=== PATIENT | male | born 1990 | race Caucasian/White ===

== ENCOUNTER 2020-03-22 10:09 | Inpatient (IN) | payer OTHER ==
--- NOTE | 2020-03-22 10:30 | BHS.RME ---
Substance Use & Tx History - Substance Use History Alcohol Substance amount: 3/4 to one liter Vodka Frequency of use: Daily Substance route: Oral Date of Last Use: 03/22/20 - Last Treatment Date of last treatment: January 242019 Treatment type: Substance Use Disorder ([facility]SHINE) Where was last treatment: Detox Physical/Psych/Mental Status - Behavior General Behavior: Increased activity (restlessness, agitation) Eye Contact: Normal - Cooperativeness Cooperativeness: Cooperative - Thinking Thought Processes: Tight Thought content: Suicidal ideation - Physical Health Problems Is patient presently having any pain?: No Does patient presently have any injuries (include location): No Does patient currently have a fever: No CIWA Nausea/Vomitin-No Nausea/No Vomiting Muscle Tremors: 3 Anxiety: 4-Mod. Anxious/Guarded Agitation: 0-Normal Activity Paroxysmal Sweats: No Perspiration Orientation: 1-Uncertain about Date Tacttile Disturbances: 1-Very Mild Itch/Numbness Auditory Disturbances: 2-Mild Harshness/Frighten Visual Disturbances: 2-Mild Sensitivity Headache: 0-None Present CIWA-Ar Total Score: 13 Treatment Recommendation - Level of Care Level of Care: Acute Psychiatric (will place pt on 1:1 for suicidal ideation and call Psychiatry for evaluation)
--- NOTE | 2020-03-22 10:43 | PN ---
[facility] Progress Note Note: Pt. voiced suicidal ideation when querried. Stated he would "put a gun in my mouth". States he has a gun at home but, "would never do that". Placed on 1:1 with nurse Carri Irvin, called Driss Gallego for psychiatric evaluation.
[2020-03-22 10:49] VITALS: BMI 21.9
--- NOTE | 2020-03-22 11:48 | HP ---
CIWA Score Nausea/Vomitin-No Nausea/No Vomiting Muscle Tremors: 3 Anxiety: 4-Mod. Anxious/Guarded Agitation: 0-Normal Activity Paroxysmal Sweats: No Perspiration Orientation: 1-Uncertain about Date Tacttile Disturbances: 1-Very Mild Itch/Numbness Auditory Disturbances: 2-Mild Harshness/Frighten Visual Disturbances: 2-Mild Sensitivity Headache: 0-None Present CIWA-Ar Total Score: 13 - Admission Criteria OASAS Guidelines: Admission for Medically Managed Detox: Requires at least one of the followin. CIWA greater than 12 2. Seizures within the past 24 hours 3. Delirium tremens within the past 24 hours 4. Hallucinations within the past 24 hours 5. Acute intervention needed for co occurring medical disorder 6. Acute intervention needed for co occurring psychiatric disorder 7. Severe withdrawal that cannot be handled at a lower level of care (continued vomiting, continued diarrhea, abnormal vital signs) requiring intravenous medication and/or fluids 8. Admitting History and Physical - Admission History of Present Illness: Mr. Beyer is a 29 yo man who presents to detox stating "I need help, I don't want to do this anymore". Hwas last here in January and relapsed within days of leaving. PMH: no PSH: right inguinal hernia, left toe bunion Psych: depression, no tx, (+) SI (psychiatry called) SoC: lives with parents Legal: none Substance Use History Alcohol Substance amount: 3/4 to one liter Vodka Frequency of use: Daily Substance route: Oral Date of Last Use: 03/22/20 - Last Treatment Date of last treatment: January 24 to 2019 Treatment type: Substance Use Disorder ([facility]SHINE) Where was last treatment: Detox History Source: Patient Limitations to Obtaining History: No Limitations - Past Medical History Pulmonary: Yes: Asthma Gastrointestinal: Yes: GERD Psych: Yes: Depression - Past Surgical History Past Surgical History: Yes: None - Smoking History Smoking history: Current every day smoker Have you smoked in the past 12 months: Yes Aproximately how many cigarettes per day: 15 - Alcohol/Substance Use Hx Alcohol Use: Yes - Social History ADL: Family Assistance History of Recent Travel: No Admission ROS BHS - HPI Allergies/Adverse Reactions: Allergies Allergy/AdvReac Type Severity Reaction Status Date / Time No Known Allergies Allergy Verified 03/22/20 10:42 Exam Limitations: No Limitations - Ebola screening Have you traveled outside of the country in the last 21 days: No Have you been sick,other than usual withdrawal symptoms: No Do you have a fever: No - Review of Systems Constitutional: Changes in sleep (some days sleeps more, some less) EENT: reports: Blurred Vision (glasses for near and distant, has glasses with him today) Respiratory: reports: No Symptoms reported Cardiac: reports: No Symptoms Reported GI: reports: Constipated, Nausea : reports: No Symptoms Reported Musculoskeletal: reports: No Symptoms Reported Integumentary: reports: No Symptoms Reported Neuro: reports: No Symptoms reported Endocrine: reports: No Symptoms Reported Hematology: reports: No Symptoms Reported Psychiatric: reports: Anxious, Depressed Patient History - Patient Medical History Hx Anemia: No Hx Asthma: No Hx Chronic Obstructive Pulmonary Disease (COPD): No Hx Cancer: No Hx Cardiac Disorders: No Hx Congestive Heart Failure: No Hx Hypertension: No Hx Hypercholesterolemia: No Hx Pacemaker: No HX Cerebrovascular Accident: No Hx Seizures: No Hx Dementia: No Hx Diabetes: No Hx Gastrointestinal Disorders: No Hx Liver Disease: No Hx Genitourinary Disorders: No Hx Sexually Transmitted Disorders: No Hx Renal Disease (ESRD): No Hx Thyroid Disease: No Hx Human Immunodeficiency Virus (HIV): No Hx Hepatitis C: No Hx Depression: Yes Hx Suicide Attempt: No Hx Bipolar Disorder: No Hx Schizophrenia: No - Patient Surgical History Past Surgical History: Yes Hx Neurologic Surgery: No Hx Cataract Extraction: No Hx Cardiac Surgery: No Hx Lung Surgery: No Hx Breast Surgery: No Hx Breast Biopsy: No Hx Abdominal Surgery: Yes (left testicular hernia repair 2006/bunion repair 07/17) Hx Appendectomy: No Hx Cholecystectomy: No Hx Genitourinary Surgery: No Hx Section: No Hx Orthopedic Surgery: No Anesthesia Reaction: No - PPD History Previous Implant?: Yes Documented Results: Negative w/proof Implanted On Prior R Admission?: Yes Date: 01/27/20 - Reproductive History Patient : (n/a) - Smoking Cessation Smoking history: Current every day smoker Have you smoked in the past 12 months: Yes Aproximately how many cigarettes per day: 15 Hx Chewing Tobacco Use: No Initiated information on smoking cessation: Yes 'Breaking Loose' booklet given: 03/22/20 - Substances abused Alcohol Substance route: Oral Frequency: Daily Amount used: 3/4 liter of vodka Age of first use: 19 Date of last use: 03/22/20 Admission Physical Exam [facility] - Vital Signs Vital Signs: Vital Signs - 24 hr 03/22/20 10:42 Temperature 98.3 F Pulse Rate 107 H Respiratory 19 Rate Blood Pressure 154/103 H - Physical General Appearance: Yes: Nourished, Appropriately Dressed, Mild Distress, Anxious HEENTM: Yes: EOMI, Hearing grossly Normal, Normocephalic, Normal Voice Respiratory: Yes: Lungs Clear, Normal Breath Sounds, No Respiratory Distress, No Accessory Muscle Use Neck: Yes: Within Normal Limits, Supple Breast: Yes: Breast Exam Deferred Cardiology: Yes: Regular Rhythm, Regular Rate, S1, S2 Abdominal: Yes: Normal Bowel Sounds, Non Tender, Flat, Soft Genitourinary: Yes: Other (deferred) Back: Yes: Normal Inspection Musculoskeletal: Yes: Gait Steady Extremities: Yes: Normal Inspection, Non-Tender Neurological: Yes: Alert Integumentary: Yes: Normal Color, Dry, Warm, Other (scattered bruises on both legs, he attributes to bed with bars) - Diagnostic (1) Alcohol dependence with withdrawal, uncomplicated Current Visit: Yes Status: Acute (2) Depression Current Visit: Yes Status: Acute Comment: seen by PRATIBHA Gallego in [facility] for suicidal thoughts (3) Nicotine dependence Current Visit: Yes Status: Acute Qualifiers: Nicotine product type: cigarettes Substance use status: uncomplicated Qualified Code(s): F17.210 - Nicotine dependence, cigarettes, uncomplicated Cleared for Admission [facility] - Detox or Rehab [facility] Level of Care: Medically Managed Detox Regimen/Protocol: Ativan Breathalyzer - Breathalyzer Breathalyzer: 0.211 Urine Drug Screen - Test Device Lot number: [id number] Expiration date: 03/13/22 - Control Is test valid?: Yes - Results Drug screen NEGATIVE: Yes Inpatient Rehab Admission - Rehab Decision to Admit Inpatient rehab admission?: No
[2020-03-22] MEDS ORDERED: NICOTINE POLACRILEX 2 MG GUM BUC PRN (11:49)
[2020-03-22] MEDS ORDERED: ACETAMINOPHEN 325 MG TABLET (FP) PO PRN ×2 (11:49)
[2020-03-22] MEDS ORDERED: LORazepam 1 MG TABLET PO PRN (11:49)
[2020-03-22] MEDS ORDERED: MAGNESIUM CITRATE 300 ML BOTTLE PO PRN (11:49)
[2020-03-22] MEDS ORDERED: BISMUTH SUBSALICYLATE 262 MG/15 ML BTL PO PRN (11:49)
[2020-03-22] MEDS ORDERED: ONDANSETRON *ODT* 4 MG TABLET SL PRN (11:49)
[2020-03-22] MEDS ORDERED: MAG HYDROX/AL HYDROX/SIMETH 30 ML UNIT-DOSE CUP PO PRN (11:49)
[2020-03-22] MEDS ORDERED: IBUPROFEN 400 MG TABLET (FP) PO PRN (11:49)
[2020-03-22] MEDS ORDERED: MENTHOL/PHENOL 1 EACH UD MM PRN (11:49)
[2020-03-22] MEDS ORDERED: MAGNESIUM HYDROX 2400MG/30ML ORAL SUSPENSION 30 ML CUP PO PRN (11:49)
[2020-03-22] MEDS: NICOTINE 14 MG/24 HOURS TOPICAL PATCH TD SCH (12:35)
--- NOTE | 2020-03-22 12:36 | CONSULT ---
[facility] Psychiatric Consult - Data Date of interview: 03/22/20 Admission source: [facility] Identifying data: Patient is a 29 year old single male, without children, unemployed ( previously worked as a cabin residential door installer), and resides with family. This is one of multiple admissions for patient. Patient admitted to for alcohol dependence. Substance Abuse History: Smoking Cessation. Smoking history: Current every day smoker. Have you smoked in the past 12 months: Yes. Aproximately how many cigarettes per day: 15. Hx Chewing Tobacco Use: No. Initiated information on smoking cessation: Yes. 'Breaking Loose' booklet given: 03/22/20. - Substances abused. Alcohol. Substance route: Oral. Frequency: Daily. Amount used: 3/4 liter of vodka. Age of first use: 19. Date of last use: 03/22/20 Medical History: Significant for GERD and history of childhood asthma. Psychiatric History: Patient seen in the [facility] after reports of suicidal ideation of stating " I would put a gun in my mouth." Mr. Beyer denies history of psychiatric hospitalizations, outpatient psychiatric care, and suicide attempt. Patient presented as calm, cooperative, alert + oriented X3 but depressed. Patient reports feeling " really low" today due to his chronic use of alcohol which has caused him to have thoughts of not wanting to live but states that he would never act on hurting himself. Patient reports having a gun at home but states that he does not touch it when when he drinks alcohol. He did report having thoughts of " putting the gun in my mouth." States that he would never hurt himself and only has negative thoughts when he drinks alcohol. Mr. Beyer is able to mention his mother, father, sister, and twin brother as his protective factor. He reports motivation of wanting to live and his motivation to stop drinking. He recalls a year of sobriery in 2016 in which he reported feeling great. Mr. Beyer stated that his plan is to complete detox and attend inpatient rehab at [facility]. No reported family history of suicide attempt. Patient denies current thoughts to hurt self others. Physical/Sexual Abuse/Trauma History: denies. Mental Status Exam - Mental Status Exam Alert and Oriented to: Time, Place, Person Cognitive Function: Good Patient Appearance: Well Groomed Mood: Sad Affect: Mood Congruent Patient Behavior: Appropriate, Cooperative Speech Pattern: Appropriate Voice Loudness: Normal Thought Process: Goal Oriented Thought Disorder: Not Present Hallucinations: Denies Suicidal Ideation: Denies Homicidal Ideation: Denies Insight/Judgement: Poor Sleep: Poorly Appetite: Fair Muscle strength/Tone: Normal Gait/Station: Normal Psychiatric Findings - Problem List ([place]oom[place] 1, 2,3) (1) Alcohol dependence with withdrawal, uncomplicated Status: Acute (2) Alcohol-induced mood disorder Status: Acute (3) Alcohol-induced sleep disorder Status: Acute - Initial Treatment Plan Initial Treatment Plan: Psychoeducation provided. Detoxification in progress. Will order gabapentin 200mg TID for anxiety+ Belsomra 10mg HS PRN. Benefits and side effects discussed. Verbal consent given.
[2020-03-22] MEDS: hydrOXYzine PAMOATE 25 MG CAPSULE (FP) PO SCH ×3 (13:36→22:55)
[2020-03-22 16:51] LABS: HEMATOCRIT 46.6 % (35.4-49); HEMOGLOBIN 15.7 GM/dL (11.7-16.9); MCH 31.1 pg (25.7-33.7); MCHC 33.8 g/dl (32.0-35.9); MEAN CELL VOLUME 92.2 fl (80-96); MEAN PLT VOLUME 9.3 fl (7.5-11.1); PLATELET COUNT 107 K/MM3 (134-434); RBC 5.05 M/mm3 (4.00-5.60); RDW 15.4 % (11.9-15.9); WHITE BLOOD COUNT 5.1 K/mm3 (4.0-10.0)
[2020-03-22 16:57] LABS: BILIRUBIN,TOTAL 1.9 mg/dL (0.2-1); BLOOD UREA NITROGEN 14.7 mg/dL (7-18); POTASSIUM 4.1 mmol/L (3.5-5.1)
[2020-03-22] MEDS: LORazepam 2 MG TABLET PO SCH ×2 (17:56→22:54)
[2020-03-22] MEDS: GABAPENTIN 100 MG CAPSULE PO SCH (22:54)
[2020-03-22] MEDS: THIAMINE HCL 100 MG TABLET (FP) PO SCH (22:55)
[2020-03-22] MEDS: MELATONIN 5 MG TABLETS PO SCH (22:56)
[2020-03-23] MEDS: LORazepam 2 MG TABLET PO SCH ×4 (05:39→23:07)
[2020-03-23] MEDS: GABAPENTIN 100 MG CAPSULE PO SCH ×3 (05:40→22:40)
[2020-03-23] MEDS: hydrOXYzine PAMOATE 25 MG CAPSULE (FP) PO SCH ×5 (05:40→22:40)
[2020-03-23] MEDS: PRENATAL VITAMINS W/ FOLIC ACID TABLET (FP) PO SCH (10:14)
[2020-03-23] MEDS: NICOTINE 14 MG/24 HOURS TOPICAL PATCH TD SCH (10:14)
--- NOTE | 2020-03-23 10:34 | PN ---
S CIWA - CIWA Score Nausea/Vomitin Muscle Tremors: 2 Anxiety: 2 Agitation: 2 Paroxysmal Sweats: 1-Minimal Palms Moist Orientation: 0-Oriented Tacttile Disturbances: 1-Very Mild Itch/Numbness Auditory Disturbances: 0-None Visual Disturbances: 0-None Headache: 2-Mild CIWA-Ar Total Score: 12 BHS Progress Note (SOAP) Subjective: alert,irritable,anxious,interrupted sleep,tremor,pain in the body,nausea Objective: 03/23/20 17:25 Vital Signs Temperature 98.1 F 03/23/20 12:42 Pulse Rate 110 H 03/23/20 12:42 Respiratory Rate 18 03/23/20 12:42 Blood Pressure 140/89 03/23/20 12:42 O2 Sat by Pulse Oximetry (%) 99 03/23/20 12:42 Laboratory Last Values WBC 5.1 K/mm3 (4.0-10.0) 03/22/20 12:05 RBC 5.05 M/mm3 (4.00-5.60) 03/22/20 12:05 Hgb 15.7 GM/dL (11.7-16.9) 03/22/20 12:05 Hct 46.6 % (35.4-49) 03/22/20 12:05 MCV 92.2 fl (80-96) 03/22/20 12:05 MCH 31.1 pg (25.7-33.7) 03/22/20 12:05 MCHC 33.8 g/dl (32.0-35.9) 03/22/20 12:05 RDW 15.4 % (11.9-15.9) 03/22/20 12:05 Plt Count 107 K/MM3 (134-434) L D 03/22/20 12:05 MPV 9.3 fl (7.5-11.1) D 03/22/20 12:05 Sodium 140 mmol/L (136-145) 03/22/20 12:05 Potassium 4.1 mmol/L (3.5-5.1) 03/22/20 12:05 Chloride 100 mmol/L (98-107) 03/22/20 12:05 Carbon Dioxide 29 mmol/L (21-32) 03/22/20 12:05 Anion Gap 10 MMOL/L (8-16) 03/22/20 12:05 BUN 14.7 mg/dL (7-18) 03/22/20 12:05 Creatinine 1.0 mg/dL (0.55-1.3) 03/22/20 12:05 Est GFR (CKD-EPI)AfAm 118.19 03/22/20 12:05 Est GFR (CKD-EPI)NonAf 101.97 03/22/20 12:05 Random Glucose 130 mg/dL (74-106) H 03/22/20 12:05 Calcium 9.0 mg/dL (8.5-10.1) 03/22/20 12:05 Total Bilirubin 1.9 mg/dL (0.2-1) H 03/22/20 12:05 AST 298 U/L (15-37) H 03/22/20 12:05 ALT 190 U/L (13-61) H 03/22/20 12:05 Alkaline Phosphatase 105 U/L (45-117) 03/22/20 12:05 Total Protein 9.0 g/dl (6.4-8.2) H 03/22/20 12:05 Albumin 5.0 g/dl (3.4-5.0) 03/22/20 12:05 Syphilis Serology Non-reactive (NONREACTIVE) 03/22/20 12:05 COVID-19 (ELIU) Not detected (Not Detected) 03/22/20 12:45 Assessment: 03/23/20 17:25 withdrawal symptom Plan: continue detox ativan regimen,repeat hepatic function panel,inr in am,fasting glucose in am
[2020-03-23] MEDS ORDERED: cloNIDine HCL 0.1 MG TABLET PO ONE (20:21)
[2020-03-23] MEDS: THIAMINE HCL 100 MG TABLET (FP) PO SCH (22:40)
[2020-03-23] MEDS: SUVOREXANT 10 MG TABLET PO PRN (22:43)
[2020-03-23] MEDS: MELATONIN 5 MG TABLETS PO SCH (23:07)
[2020-03-24] MEDS: LORazepam 1 MG TABLET PO SCH ×4 (06:17→22:29)
[2020-03-24] MEDS: GABAPENTIN 100 MG CAPSULE PO SCH ×3 (06:18→22:29)
[2020-03-24] MEDS: hydrOXYzine PAMOATE 25 MG CAPSULE (FP) PO SCH ×5 (06:18→22:29)
[2020-03-24] MEDS: NICOTINE 14 MG/24 HOURS TOPICAL PATCH TD SCH (10:24)
[2020-03-24] MEDS: PRENATAL VITAMINS W/ FOLIC ACID TABLET (FP) PO SCH (10:24)
--- NOTE | 2020-03-24 11:53 | PN ---
S CIWA - CIWA Score Nausea/Vomitin-No Nausea/No Vomiting Muscle Tremors: None Anxiety: 3 Agitation: 1-Slight > Activity Paroxysmal Sweats: 3 Orientation: 0-Oriented Tacttile Disturbances: 0-None Auditory Disturbances: 0-None Visual Disturbances: 0-None Headache: 2-Mild CIWA-Ar Total Score: 9 BHS Progress Note (SOAP) Subjective: c/o anxiety, headache, and sweats. Objective: 03/24/20 11:49 Vital Signs 03/24/20 03/24/20 06:00 08:34 Temperature 97.5 F L 97.1 F L Pulse Rate 76 100 H Respiratory 18 18 Rate Blood Pressure 117/73 133/83 O2 Sat by Pulse 97 Oximetry (%) Laboratory Last Values WBC 5.1 K/mm3 (4.0-10.0) 03/22/20 12:05 RBC 5.05 M/mm3 (4.00-5.60) 03/22/20 12:05 Hgb 15.7 GM/dL (11.7-16.9) 03/22/20 12:05 Hct 46.6 % (35.4-49) 03/22/20 12:05 MCV 92.2 fl (80-96) 03/22/20 12:05 MCH 31.1 pg (25.7-33.7) 03/22/20 12:05 MCHC 33.8 g/dl (32.0-35.9) 03/22/20 12:05 RDW 15.4 % (11.9-15.9) 03/22/20 12:05 Plt Count 107 K/MM3 (134-434) L D 03/22/20 12:05 MPV 9.3 fl (7.5-11.1) D 03/22/20 12:05 Sodium 140 mmol/L (136-145) 03/22/20 12:05 Potassium 4.1 mmol/L (3.5-5.1) 03/22/20 12:05 Chloride 100 mmol/L (98-107) 03/22/20 12:05 Carbon Dioxide 29 mmol/L (21-32) 03/22/20 12:05 Anion Gap 10 MMOL/L (8-16) 03/22/20 12:05 BUN 14.7 mg/dL (7-18) 03/22/20 12:05 Creatinine 1.0 mg/dL (0.55-1.3) 03/22/20 12:05 Est GFR (CKD-EPI)AfAm 118.19 03/22/20 12:05 Est GFR (CKD-EPI)NonAf 101.97 03/22/20 12:05 Random Glucose 130 mg/dL (74-106) H 03/22/20 12:05 Calcium 9.0 mg/dL (8.5-10.1) 03/22/20 12:05 Total Bilirubin 1.9 mg/dL (0.2-1) H 03/22/20 12:05 AST 298 U/L (15-37) H 03/22/20 12:05 ALT 190 U/L (13-61) H 03/22/20 12:05 Alkaline Phosphatase 105 U/L (45-117) 03/22/20 12:05 Total Protein 9.0 g/dl (6.4-8.2) H 03/22/20 12:05 Albumin 5.0 g/dl (3.4-5.0) 03/22/20 12:05 Syphilis Serology Non-reactive (NONREACTIVE) 03/22/20 12:05 COVID-19 (ELIU) Not detected (Not Detected) 03/22/20 12:45 Labs noted with elevated AST/ALT. 03/24/20 11:52 Assessment: 03/24/20 11:52 AOX3 and in no acute respiratory distress. Full ROM, ambulating in the unit. Withdrawal symptoms. Elevated liver enzymes. Plan: continue detox.
[2020-03-24] MEDS: METHOCARBAMOL 500 MG TABLET PO PRN (18:25)
[2020-03-24] MEDS: SUVOREXANT 10 MG TABLET PO PRN (22:28)
[2020-03-24] MEDS: MELATONIN 5 MG TABLETS PO SCH (22:29)
[2020-03-24] MEDS: THIAMINE HCL 100 MG TABLET (FP) PO SCH (22:29)
[2020-03-25] MEDS ORDERED: LORazepam 0.5 MG TABLET PO PRN
[2020-03-25] MEDS: GABAPENTIN 100 MG CAPSULE PO SCH ×3 (06:20→22:19)
[2020-03-25] MEDS: LORazepam 0.5 MG TABLET PO SCH ×4 (06:20→22:19)
[2020-03-25] MEDS: hydrOXYzine PAMOATE 25 MG CAPSULE (FP) PO SCH ×5 (06:21→22:19)
--- NOTE | 2020-03-25 10:26 | PN ---
S CIWA - CIWA Score Nausea/Vomitin-No Nausea/No Vomiting Muscle Tremors: 2 Anxiety: 1-Mildly Anxious Agitation: 0-Normal Activity Paroxysmal Sweats: No Perspiration Orientation: 0-Oriented Tacttile Disturbances: 0-None Auditory Disturbances: 0-None Visual Disturbances: 1-Very Mild Sensitivity Headache: 1-Very Mild CIWA-Ar Total Score: 5 BHS Progress Note (SOAP) Subjective: 29 years old male admitted on 03/22/20 for alcohol withdrawal sx management treating with ativan detox regiment feeling better today sitting on the edge of the bed eating breakfast less tremor mild anxiety denies suicidal ideation no homocidal no self destructive behavioral noted discussing aftercare with staff mr silva prefers [facility] in patient rehab for alcohol recovery Objective: 03/25/20 10:29 Vital Signs - 24 hr 03/24/20 03/24/20 03/24/20 12:32 16:55 20:40 Temperature 98.5 F 97.5 F L 98.4 F Pulse Rate 94 H 83 98 H Respiratory 18 18 19 Rate Blood Pressure 135/91 134/88 136/87 O2 Sat by Pulse 100 98 Oximetry (%) 03/25/20 03/25/20 07:25 08:45 Temperature 97.5 F L 97.1 F L Pulse Rate 62 65 Respiratory 18 18 Rate Blood Pressure 113/75 123/89 O2 Sat by Pulse 99 Oximetry (%) Laboratory Tests 03/22/20 03/22/20 03/22/20 12:05 12:05 12:05 WBC 5.1 RBC 5.05 Hgb 15.7 Hct 46.6 MCV 92.2 MCH 31.1 MCHC 33.8 RDW 15.4 Plt Count 107 L D MPV 9.3 D Sodium 140 Potassium 4.1 Chloride 100 Carbon Dioxide 29 Anion Gap 10 BUN 14.7 Creatinine 1.0 Est GFR (CKD-EPI)AfAm 118.19 Est GFR (CKD-EPI)NonAf 101.97 Random Glucose 130 H Fasting Glucose Calcium 9.0 Total Bilirubin 1.9 H AST 298 H ALT 190 H Alkaline Phosphatase 105 Total Protein 9.0 H Albumin 5.0 Syphilis Serology Non-reactive COVID-19 (ELIU) 03/22/20 03/25/20 12:45 08:00 WBC RBC Hgb Hct MCV MCH MCHC RDW Plt Count MPV Sodium Potassium Chloride Carbon Dioxide Anion Gap BUN Creatinine Est GFR (CKD-EPI)AfAm Est GFR (CKD-EPI)NonAf Random Glucose Fasting Glucose Cancelled Calcium Total Bilirubin AST ALT Alkaline Phosphatase Total Protein Albumin Syphilis Serology COVID-19 (ELIU) Not detected glucose elevation ast elevation 03/25/20 10:30 low plt fasting glucose pending camp pending inr pending Assessment: 03/25/20 10:30 alcohol withdrawal Plan: ativan regiment
[2020-03-25 10:44] LABS: INR 0.98 (0.83-1.09); PROTHROMBIN TIME (PATIENT) 11.6 SEC (9.7-13.0)
[2020-03-25] MEDS: NICOTINE 14 MG/24 HOURS TOPICAL PATCH TD SCH (10:46)
[2020-03-25] MEDS: METHOCARBAMOL 500 MG TABLET PO PRN ×2 (10:46→17:59)
[2020-03-25] MEDS: PRENATAL VITAMINS W/ FOLIC ACID TABLET (FP) PO SCH (10:46)
[2020-03-25 10:51] LABS: POTASSIUM 4.1 mmol/L (3.5-5.1)
[2020-03-25 10:57] LABS: ALBUMIN 4.1 g/dl (3.4-5.0); BILIRUBIN,DIRECT 0.5 mg/dL (0.0-0.2); CALCIUM 9.1 mg/dL (8.5-10.1); CREATININE 0.9 mg/dL (0.55-1.3); TOT PROT 7.3 g/dl (6.4-8.2)
[2020-03-25 11:33] LABS: BILIRUBIN,TOTAL 2.4 mg/dL (0.2-1)
[2020-03-25] MEDS ORDERED: SUVOREXANT 10 MG TABLET PO ONE (22:00)
[2020-03-25] MEDS: THIAMINE HCL 100 MG TABLET (FP) PO SCH (22:19)
[2020-03-25] MEDS: MELATONIN 5 MG TABLETS PO SCH (22:20)
[2020-03-26] MEDS ORDERED: LORazepam 0.5 MG TABLET PO ONE (05:00)
[2020-03-26] MEDS: GABAPENTIN 100 MG CAPSULE PO SCH (06:12)
[2020-03-26] MEDS: hydrOXYzine PAMOATE 25 MG CAPSULE (FP) PO SCH (06:12)
[2020-03-26] MEDS: METHOCARBAMOL 500 MG TABLET PO PRN (06:13)
[2020-03-26 06:55] VITALS: BP 113/77; PULSE 66; TEMP 98.2
--- NOTE | 2020-03-26 10:09 | DS ---
[facility] Detox Discharge Summary Admission Date: 03/22/20 Discharge Date: 03/26/20 - History Present History: Alcohol Dependence Additional Comments: 29 years old male was admitted on 03/22/20 for alcohol withdrawal sx management treated with ativan detox regiment seen by psychiatrist jaimie gardner mr silva has completed the ativan regiment and is tolerated well General Appearance: Yes: Nourished, Appropriately Dressed, Mild Distress, Anxious HEENTM: Yes: EOMI, Hearing grossly Normal, Normocephalic, Normal Voice Respiratory: Yes: Lungs Clear, Normal Breath Sounds, No Respiratory Distress, No Accessory Muscle Use Neck: Yes: Within Normal Limits, Supple Breast: Yes: Breast Exam Deferred Cardiology: Yes: Regular Rhythm, Regular Rate, S1, S2 Abdominal: Yes: Normal Bowel Sounds, Non Tender, Flat, Soft Genitourinary: Yes: Other (deferred) Back: Yes: Normal Inspection Musculoskeletal: Yes: Gait Steady Extremities: Yes: Normal Inspection, Non-Tender Neurological: Yes: Alert Integumentary: Yes: Normal Color, Dry, Warm, Other (scattered bruises on both legs, he attributes to bed with bars) Pertinent Past History: time for discharge 35 minutes mr silva states that he is going to [facility] for alcohol recovery his brother will pick him up from detox facility to [facility] mr silva denies suicidal ideation no homocidal ideation no self destructive behavior - Physical Exam Results Vital Signs: Vital Signs Temperature 98.2 F 03/26/20 06:55 Pulse Rate 66 03/26/20 06:55 Respiratory Rate 16 03/26/20 06:55 Blood Pressure 113/77 03/26/20 06:55 O2 Sat by Pulse Oximetry (%) 99 03/26/20 06:55 Pertinent Admission Physical Exam Findings: alcohol withdrawal Vital Signs - 24 hr 03/25/20 03/25/20 03/25/20 12:23 16:30 20:45 Temperature 98.8 F 97.1 F L 97.5 F L Pulse Rate 67 81 76 Respiratory 18 18 18 Rate Blood Pressure 130/86 136/86 128/85 O2 Sat by Pulse 100 98 Oximetry (%) 03/26/20 06:55 Temperature 98.2 F Pulse Rate 66 Respiratory 16 Rate Blood Pressure 113/77 O2 Sat by Pulse 99 Oximetry (%) Laboratory Tests 03/22/20 03/22/20 03/22/20 12:05 12:05 12:05 WBC 5.1 RBC 5.05 Hgb 15.7 Hct 46.6 MCV 92.2 MCH 31.1 MCHC 33.8 RDW 15.4 Plt Count 107 L D MPV 9.3 D PT with INR INR Sodium 140 Potassium 4.1 Chloride 100 Carbon Dioxide 29 Anion Gap 10 BUN 14.7 Creatinine 1.0 Est GFR (CKD-EPI)AfAm 118.19 Est GFR (CKD-EPI)NonAf 101.97 Random Glucose 130 H Fasting Glucose Calcium 9.0 Total Bilirubin 1.9 H Direct Bilirubin AST 298 H ALT 190 H Alkaline Phosphatase 105 Total Protein 9.0 H Albumin 5.0 Syphilis Serology Non-reactive COVID-19 (ELIU) 03/22/20 03/25/20 03/25/20 12:45 08:00 08:00 WBC RBC Hgb Hct MCV MCH MCHC RDW Plt Count MPV PT with INR 11.60 INR 0.98 Sodium 139 Potassium 4.1 Chloride 102 Carbon Dioxide 29 Anion Gap 8 BUN 12.0 Creatinine 0.9 Est GFR (CKD-EPI)AfAm 134.24 Est GFR (CKD-EPI)NonAf 115.82 Random Glucose 91 Fasting Glucose Calcium 9.1 Total Bilirubin 2.4 H Direct Bilirubin 0.5 H AST 396 H ALT 299 H Alkaline Phosphatase 96 Total Protein 7.3 Albumin 4.1 Syphilis Serology COVID-19 (ELIU) Not detected 03/25/20 08:00 WBC RBC Hgb Hct MCV MCH MCHC RDW Plt Count MPV PT with INR INR Sodium Potassium Chloride Carbon Dioxide Anion Gap BUN Creatinine Est GFR (CKD-EPI)AfAm Est GFR (CKD-EPI)NonAf Random Glucose Fasting Glucose Cancelled Calcium Total Bilirubin Direct Bilirubin AST ALT Alkaline Phosphatase Total Protein Albumin Syphilis Serology COVID-19 (ELIU) fasting glucose lab cancelled mr silva will follow up with [facility] for liver enzyme elevation as well as hepatitis c and hepatic function panel - Treatment Hospital Course: Detox Protocol Followed, Detoxed Safely, Responded well, Discharged Condition Good, Rehab Referral Accepted Patient has Accepted a Rehab Referral to: [facility] - Medication Discharge Medications: Ambulatory Orders NK [No Known Home Medication] 01/25/20 - Diagnosis (1) Alcohol dependence with withdrawal, uncomplicated Status: Acute (2) GERD (gastroesophageal reflux disease) Status: Chronic Qualifiers: Esophagitis presence: without esophagitis Qualified Code(s): K21.9 - Gastro-esophageal reflux disease without esophagitis (3) Liver enzyme elevation Status: Chronic (4) Nicotine dependence Status: Acute Qualifiers: Nicotine product type: cigarettes Substance use status: in withdrawal Qualified Code(s): F17.213 - Nicotine dependence, cigarettes, with withdrawal (5) Substance-induced anxiety disorder Status: Suspected - AMA Did Patient Leave Against Medical Advice: No CIWA Score - CIWA Score Nausea/Vomitin-No Nausea/No Vomiting Muscle Tremors: 1-None Visible, but [place] Anxiety: 1-Mildly Anxious Agitation: 0-Normal Activity Paroxysmal Sweats: No Perspiration Orientation: 0-Oriented Tacttile Disturbances: 0-None Auditory Disturbances: 0-None Visual Disturbances: 0-None Headache: 0-None Present CIWA-Ar Total Score: 2
== END 2020-03-26 09:20 | disposition home or self-care (01) | DRG 775 ==
LOC: YASAS 10:09 → Y3N 11:34
PROVIDERS: ADMIT Allergy & Immunology; ATTEND Allergy & Immunology
PROC: HZ2ZZZZ Detoxification Services for Substance Abuse Treatment (ICD-10-PCS; principal; 2020-03-22)
DX: F10.230 Alcohol dependence with withdrawal, uncomplicated (principal); F17.213 Nicotine dependence, cigarettes, with withdrawal; F19.280 Other psychoactive substance dependence with psychoactive substance-induced anxiety disorder; F10.24 Alcohol dependence with alcohol-induced mood disorder; F32.9 Major depressive disorder, single episode, unspecified; R45.851 Suicidal ideations; D72.819 Decreased white blood cell count, unspecified; J45.909 Unspecified asthma, uncomplicated; B18.2 Chronic viral hepatitis C; R74.0 Nonspecific elevation of levels of transaminase and lactic acid dehydrogenase [LDH]; K21.9 Gastro-esophageal reflux disease without esophagitis
CPT/HCPCS: 36415; 80048; 80053; 80076; 85027; 85610; 86780; J0735; U0003